=== PATIENT | female | born 1980 | race African-American/Black ===

== ENCOUNTER 2016-10-19 15:44 | Emergency (ER) | payer OTHER ==
--- NOTE | ~2016-10-19 | CR170 ---
[facility] A Service of [facility] & [facility] RADIOLOGY TEXT RESULTS PATIENT: DORINA WILLIS LOCATION: CFTX : 84 UNIT #: [id number] AGE: [address]: Kit Ewing SEX: F ORDER DR: [id number] [facility] [address] [place], [place] [address] [id number] E MR#: [id number] Acc #: [id number] NAME: DORINA WILLIS : 1980 SEX: F STUDY DATE/TIME: 10/19/2016 15:19 UNIT: CFTX ROOM: STUDY DESCRIPTION: CR Knee 2 Views Rt Attending Physician: Kit Ewing Ordering Physician: Ed Remington Pérez M.D. Primary Care Physician: Generic Doctor Not In System MEDICAL IMAGING REPORT This report is preliminary unless electronic signature is present EXAM Right knee series, 10/19/2016 HISTORY Kicked in right knee. Happened today. Anterior knee pain. FINDINGS AP, lateral and sunrise views right knee presented. No traumatic fracture or malalignment. The joint spaces are intact. Question mild soft tissue swelling prepatellar region. This may simply reflect the patient's normal body habitus. Weight should be given clinical assessment. No joint effusion. Dictated by... Demar Mckinney M.D. THIS IS AN ELECTRONICALLY VERIFIED REPORT Demar Mckinney M.D. at 10/20/2016 4:18 PM DOC/quinten TD: 10/19/2016 21:37 JOB #: [id number] MEDICAL IMAGING REPORT COPY
[~2016-10-19 15:44] MED LIST: PHENERGAN PO
== END 2016-10-19 16:28 | disposition home or self-care (01) ==
LOC: CFTX 15:44
DX: S89.91XA Unspecified injury of right lower leg, initial encounter (principal); W50.0XXA Accidental hit or strike by another person, initial encounter; Y93.89 Activity, other specified; Y92.69 Other specified industrial and construction area as the place of occurrence of the external cause; Y99.0 Civilian activity done for income or pay
CPT/HCPCS: 29505; 73560; 99283